=== PATIENT | male | born 1995 | race Asian ===

== ENCOUNTER 2022-03-06 09:06 | Day surgery (SDC) | payer BC ==
[2022-03-05 12:59] VITALS: BMI 22.0
[~2022-03-06 09:06] MED LIST: Fentanyl 250 MCG/5 ML VIAL ONE
[2022-03-06] MEDS ORDERED: EPINEPHrine 1 MG/ML AMP ONE (09:53)
[2022-03-06] MEDS ORDERED: Rocuronium Bromide 10 MG/ML (10ML VIAL) ONE (10:25)
[2022-03-06] MEDS ORDERED: PROPOFOL 200 MG/20 ML VIAL ONE (10:25)
[2022-03-06] MEDS ORDERED: Dexamethasone 20 MG/5 ML VIAL ONE (10:25)
[2022-03-06] MEDS ORDERED: Esmolol 100 MG/10 ML VIAL ONE (10:25)
[2022-03-06] MEDS ORDERED: Lidocaine 1% PF 5 ML VIAL ONE (10:25)
[2022-03-06] MEDS ORDERED: Ondansetron PF 4 MG/2 ML Vial ONE (10:25)
[2022-03-06] MEDS ORDERED: SUGAMMADEX SODIUM 200 MG/2 ML VIAL ONE (10:40)
== END 2022-03-06 12:31 | disposition home or self-care (01) ==
LOC: SDC 09:06
PROVIDERS: ATTEND Otolaryngology Plastic Surgery within the Head & Neck
PROC: 0CBT8ZX Excision of Right Vocal Cord, Via Natural or Artificial Opening Endoscopic, Diagnostic (ICD-10-PCS; principal; 2022-03-06)
DX: D14.1 Benign neoplasm of larynx (principal); J45.909 Unspecified asthma, uncomplicated; F17.210 Nicotine dependence, cigarettes, uncomplicated; K21.9 Gastro-esophageal reflux disease without esophagitis; Z79.899 Other long term (current) drug therapy; Z91.013 Allergy to seafood; Z91.018 Allergy to other foods
CPT/HCPCS: 88305; 88341; 88342; J0171; J1100; J2405; J2704; J3010